=== PATIENT | male | born 1950 | race African-American/Black ===

== ENCOUNTER 2018-08-19 15:21 | Emergency (ER) | payer OTHER ==
[2018-08-19] MEDS ORDERED: Tetracaine 0.5% OPTH.SOL 4 ML* 1 DROP BTL BOTH EYES ONE (15:35)
[2018-08-19 15:45] VITALS: BP 148/95
--- NOTE | 2018-08-19 15:47 | UC ---
Eye Complaint HPI - HPI Summary HPI Summary: Got dishwashing telephone cleaner in his eyes about 11;30 today---patient c/o eyes are burning but has no visual deficits----call to poison control---will rinse eyes with 1 liter of saline with jay lens each--- - History of Current Complaint Chief Complaint: UCEye Stated Complaint: CHEMIAL IN EYES Time Seen by Provider: 08/19/18 15:34 Hx Obtained From: Patient Onset/Duration: Sudden Onset, Lasting Hours - 3 Timing: Constant Severity Initially: Moderate Severity Currently: Moderate Location of Injury: Conjunctiva Character: Sharp Aggravating Factor(s): Nothing Alleviating Factor(s): Nothing Associated Signs And Symptoms: Positive: Drainage (Clear) - Allergies/Home Medications Allergies/Adverse Reactions: Allergies Allergy/AdvReac Type Severity Reaction Status Date / Time No Known Allergies Allergy Verified 08/19/18 15:41 PMH/Surg Hx/FS Hx/Imm Hx Previously Healthy: Yes - Surgical History Surgical History: Yes - Family History Known Family History: Positive: None - Social History Occupation: Employed Full-time Lives: With Family Alcohol Use: None Substance Use Type: None Smoking Status (MU): Never Smoked Tobacco Have You Smoked in the Last Year: No Review of Systems All Other Systems Reviewed And Are Negative: Yes Constitutional: Positive: Negative Skin: Positive: Negative Eyes: Positive: Drainage - clear, Eye Redness ENT: Positive: Negative Respiratory: Positive: Negative Cardiovascular: Positive: Negative Gastrointestinal: Positive: Negative Genitourinary: Positive: Negative Motor: Positive: Negative Neurovascular: Positive: Negative Musculoskeletal: Positive: Negative Neurological: Positive: Negative Psychological: Positive: Negative Is Patient Immunocompromised?: No Physical Exam Triage Information Reviewed: Yes Appearance: Well-Appearing, No Pain Distress, Well-Nourished Vital Signs Reviewed: Yes Eye Exam: Normal Eyes: Positive: Conjunctiva Inflamed, Discharge - clear ENT Exam: Normal ENT: Positive: Normal ENT inspection, Hearing grossly normal. Negative: Dental tenderness, Sinus tenderness, Uvula midline Dental Exam: Normal Neck exam: Normal Neck: Positive: Supple, Nontender, No Lymphadenopathy Respiratory Exam: Normal Respiratory: Positive: Chest non-tender, Lungs clear, Normal breath sounds, No respiratory distress, No accessory muscle use Cardiovascular Exam: Normal Cardiovascular: Positive: RRR, No Murmur, Pulses Normal, Brisk Capillary Refill Musculoskeletal Exam: Normal Musculoskeletal: Positive: Strength Intact, ROM Intact, No Edema Neurological Exam: Normal Neurological: Positive: Alert, Muscle Tone Normal Psychological Exam: Normal Skin Exam: Normal Re-Evaluation - Re-Evaluation First Eval Change: Improved - after rinse--ph 7 bilaterally, vision wnl, pain resolved---- eyes bilateral stained with no evidence of ulcerations Eye Complaint Course/Dx - Course Course Of Treatment: cipro drops, tylenol for pain, follow with optho on Tuesday - Differential Dx/Diagnosis Provider Diagnosis: Chemical burn of eye Discharge - Sign-Out/Discharge Documenting (check all that apply): Patient Departure All imaging exams completed and their final reports reviewed: No Studies - Discharge Plan Condition: Stable Disposition: HOME Prescriptions: Ciprofloxacin 0.3% OPTH.BILL* [Cipro 0.3% Opth*] 2 drop BOTH EYES Q4H #1 btl Ciprofloxacin 0.3% OPTH.BILL* [Cipro 0.3% Opth*] 2 drop BOTH EYES Q4H #1 btl Patient Education Materials: [facility] (ED) Referrals: Rene Fox MD [Medical Doctor] - 2 Days - Billing Disposition and Condition Condition: STABLE Disposition: Home
[2018-08-19] MEDS ORDERED: Fluorescein Sodium TOPICAL* 1 MG TEST STRIP OPHTHALMIC ONE (16:26)
== END 2018-08-19 16:45 | disposition home or self-care (01) ==
LOC: UCEAST 15:21
DX: T65.891A Toxic effect of other specified substances, accidental (unintentional), initial encounter (principal); T26.62XA Corrosion of cornea and conjunctival sac, left eye, initial encounter; T26.61XA Corrosion of cornea and conjunctival sac, right eye, initial encounter; Y92.9 Unspecified place or not applicable
CPT/HCPCS: 99202; A9270-GY; G0463

== ENCOUNTER 2023-06-10 02:43 | Inpatient (IN) ==
[2023-06-10] MEDS ORDERED: Labetalol IV 5 MG/ML 20 ml VIAL ONE (02:52)
[2023-06-10] MEDS ORDERED: TENECTEPLASE 50 MG VIAL KIT 5 MG/ML (reconstituted) IV ONE (02:54)
[2023-06-10] MEDS: Iodixanol (CONTRAST) 320 MG/ML 100 ML SDV IV ONE (03:11)
[2023-06-10 03:19] LABS: ABS Eosinophils 0.2 10^3/uL (0.0-0.5); ABS Monocytes 0.7 10^3/uL (0.0-1.1); ABS Neutrophils 3.8 10^3/uL (1.5-7.6); ABS Nucleated RBC 0.03 10^3/ul; Hematocrit 49.2 % (38-53); Hemoglobin 16.9 g/dL (13.2-16.3); Lymphocyte % 38.8 %; Mean Corpuscular Hemoglobin 31.4 pg (27-33); Mean Corpuscular Hgb Conc 34.4 g/dL (31-36); Mean Corpuscular Volume 91.3 fL (80-97); Mean Platelet Volume 9.4 fL (7.5-11.2); Nucleated Red Blood Cells % 0.4 %/100WBC (0.0-0.8); Platelet Count 186 10^3/uL (150-450); Red Blood Count 5.39 10^6/uL (4.06-5.63); White Blood Count 7.7 10^3/uL (3.6-10.2)
[2023-06-10 03:29] LABS: Activated Partial Thrombo Time 28.3 seconds (26.0-38.0); INR 0.96 (0.83-1.13)
[2023-06-10 03:45] LABS: Potassium 3.7 mmol/L (3.5-5.0)
[2023-06-10 03:46] LABS: Direct Bilirubin 0.2 mg/dL (0.03-0.18)
[2023-06-10 03:47] LABS: Albumin 4.4 g/dL (3.2-5.2); Albumin/Globulin Ratio 1.4 (1-3); Calcium 9.2 mg/dL (8.6-10.3); Creatinine, Serum 1.03 mg/dL (0.67-1.17); Globulin 3.2 g/dL (2-4); HDL Cholesterol 56.6 mg/dL; Indirect Bilirubin 0.6 mg/dL (0.3-1.0); Total Bilirubin 0.8 mg/dL (0.2-1.0); Total Protein 7.6 g/dL (6.4-8.9); eGFR CKD-EPI 76.2 (>60)
[2023-06-10] MEDS: niCARdipine 0.1MG/ML IVPREMIX 20 MG/200 ML BAG IV SCH ×2 (03:52→07:50)
[2023-06-10] MEDS: TENECTEPLASE 50 MG VIAL KIT 5 MG/ML (reconstituted) IV ONE (04:04)
[2023-06-10 04:45] LABS: Urine Benzodiazepine Screen None Detected (None Detect); Urine Cannabinoids Screen None Detected (None Detect); Urine Opiates Screen None Detected (None Detect)
[2023-06-10 05:09] LABS: Budding Yeast Present /HPF (Absent); Urine Appearance Clear; Urine Bacteria Absent /HPF (Absent); Urine Bilirubin Negative (Negative); Urine Blood Negative (Negative); Urine Color Yellow; Urine Glucose Negative (Negative); Urine Ketones Negative (Negative); Urine Nitrite Negative (Negative); Urine Protein 1+ (>=30 mg/dL) (Negative); Urine Red Blood Cell Trace(0-2/hpf) /HPF (0-Trace); Urine Specific Gravity >1.050 (1.002-1.030); Urine Squamous Epithelial Cell Present /HPF (Absent); Urine Urobilinogen 1+ (Negative); Urine White Blood Cell 3+(>20/hpf) /HPF (0-Trace); Urine pH 6.5 (5.0-8.0)
[2023-06-10] MEDS ORDERED: Nicotine PATCH 21 MG/24 HR PATCH TRANSDERM PRN (05:11)
[2023-06-10 05:58] LABS: Alcohol, S < 13 mg/dL (<13)
[2023-06-10] MEDS ORDERED: Sulfur Hexaflouride MICROSPHR 25 MG VIAL ONE (08:27)
[2023-06-10 10:49] LABS: Ferritin 19.4 ng/mL (24-336)
[2023-06-10] MEDS: Albuterol HFA INHALER 8 gm MDI INH PRN (23:34)
[2023-06-11 04:58] LABS: ABS Eosinophils 0.1 10^3/uL (0.0-0.5); ABS Lymphocytes 1.9 10^3/uL (1.0-4.8); ABS Monocytes 0.5 10^3/uL (0.0-1.1); ABS Neutrophils 3.3 10^3/uL (1.5-7.6); ABS Nucleated RBC 0.01 10^3/ul; Eosinophil % 1.9 %; Hematocrit 45.8 % (38-53); Hemoglobin 15.7 g/dL (13.2-16.3); Lymphocyte % 32.7 %; Mean Corpuscular Hemoglobin 31.4 pg (27-33); Mean Corpuscular Hgb Conc 34.4 g/dL (31-36); Mean Corpuscular Volume 91.5 fL (80-97); Mean Platelet Volume 9.3 fL (7.5-11.2); Nucleated Red Blood Cells % 0.2 %/100WBC (0.0-0.8); Platelet Count 132 10^3/uL (150-450); Red Blood Count 5.01 10^6/uL (4.06-5.63); Red Cell Distribution Width 13.9 % (12-17); White Blood Count 5.8 10^3/uL (3.6-10.2)
[2023-06-11 05:03] LABS: Calcium 9.1 mg/dL (8.6-10.3); Creatinine, Serum 0.97 mg/dL (0.67-1.17); Potassium 3.6 mmol/L (3.5-5.0); eGFR CKD-EPI 81.9 (>60)
[2023-06-11] MEDS: Potassium Chlor 20 meq TAB.ER PO ONE (08:07)
[2023-06-11] MEDS: Enoxaparin 40 MG/0.4 ML SYR SUBCUT SCH (20:37)
[2023-06-12 05:02] LABS: ABS Basophils 0.1 10^3/uL (0.0-0.1); ABS Eosinophils 0.1 10^3/uL (0.0-0.5); ABS Monocytes 0.6 10^3/uL (0.0-1.1); ABS Neutrophils 3.4 10^3/uL (1.5-7.6); ABS Nucleated RBC 0.02 10^3/ul; Hemoglobin 16.6 g/dL (13.2-16.3); Lymphocyte % 32.5 %; Mean Corpuscular Hemoglobin 31.1 pg (27-33); Mean Corpuscular Hgb Conc 33.9 g/dL (31-36); Mean Corpuscular Volume 91.6 fL (80-97); Mean Platelet Volume 9.4 fL (7.5-11.2); Nucleated Red Blood Cells % 0.3 %/100WBC (0.0-0.8); Platelet Count 145 10^3/uL (150-450); Red Blood Count 5.35 10^6/uL (4.06-5.63); Red Cell Distribution Width 13.7 % (12-17); White Blood Count 6.2 10^3/uL (3.6-10.2)
[2023-06-12 05:18] LABS: Calcium 9.4 mg/dL (8.6-10.3); Potassium 3.9 mmol/L (3.5-5.0)
[2023-06-15 09:58] VITALS: BP 131/82
== END 2023-06-15 14:00 | DRG 62 ==
LOC: ED 02:43 → EDHOLD 04:07 → ICU 04:49 → MEDTELE 06-12 12:04
PROVIDERS: ADMIT Student in an Organized Health Care Education/Training Program; ATTEND Hospitalist